=== PATIENT | male | born 1960 | race Caucasian/White ===

== ENCOUNTER 2016-09-02 23:50 | Emergency (ER) | payer MEDICAID ==
[~2016-09-02] VITALS: Ht 170.2 cm; Wt 73.0 kg
[2016-09-03 14:00] VITALS: BP 132/80
== END 2016-09-03 15:29 | disposition home or self-care (01) ==
LOC: ER 23:50
DX: R05 Cough (principal); E78.00 Pure hypercholesterolemia, unspecified; J45.909 Unspecified asthma, uncomplicated; H54.8 Legal blindness, as defined in USA; F17.200 Nicotine dependence, unspecified, uncomplicated
CPT/HCPCS: 71010; 99283

== ENCOUNTER 2016-09-09 21:38 | Emergency (ER) | payer MEDICAID ==
[~2016-09-09] VITALS: Ht 165.1 cm; Wt 59.0 kg
[2016-09-10 12:15] VITALS: BP 121/69
== END 2016-09-10 13:29 | disposition home or self-care (01) ==
LOC: ER 21:43
DX: Z00.00 Encounter for general adult medical examination without abnormal findings (principal); F17.200 Nicotine dependence, unspecified, uncomplicated
CPT/HCPCS: 99283

== ENCOUNTER 2024-11-12 10:04 | Inpatient (IN) | payer MEDICARE, MEDICAID ==
[~2024-11-12] VITALS: Ht 188 cm; Wt 83.5 kg
[2024-11-12] VITALS (8 sets, daily range): BP systolic 104–119; BP diastolic 69–95; PULSE 99–146; RESP 17–30; TEMP 36.5–36.6; O2SAT 93–95
[~2024-11-12 10:04] MED LIST: ATOR20TA PO; BENZ1TAB79 PO; BUPR-335 PO; DOCU-138 PO; OMEP20TA15 PO; RISP4TAB31 PO; TOBRAD LEFTEYE; TRAZ-252 PO
[2024-11-12] MEDS ORDERED: DILTIAZEM HCL 5MG/ML 5ML VIAL IV ONE (10:45)
[2024-11-12] MEDS: METHYLPREDNISOLONE SOD SUCC 125MG/2ML (ACT-O-VIAL) IV ONE (10:56)
[2024-11-12] MEDS: DILTIAZEM HCL 5MG/ML 5ML VIAL IV SCH (10:57)
[2024-11-12] MEDS: ALBUTEROL (0.083%) 2.5MG/3ML NEB HHN SCH (11:13)
[2024-11-12] MEDS: IPRATROPIUM BROMIDE (0.02%) 0.5MG/2.5ML NEB HHN SCH (11:13)
[2024-11-12] MEDS: AZITHROMYCIN 500MG/250ML 250 ML IV STA (11:34)
[2024-11-12] MEDS: DILTIAZEM HCL 60MG TABLET PO ONE (11:35)
[2024-11-12 11:48] LABS: HEMATOCRIT. 32.5 % (42.0-52.0); HEMOGLOBIN. 10.5 g/dL (14.0-18.0); MEAN PLATELET VOLUME 6.8 fl (7.4-10.4); PLATELET 610 x1000/uL (130-400); RED BLOOD CELL COUNT 3.99 mill/uL (4.7-6.1); RED CELL DISTRIBUTION WIDTH 16.3 % (11.6-14.6)
[2024-11-12 12:05] LABS: CREATININE 1.2 mg/dL (0.6-1.3); UREA NITROGEN BLOOD 38 mg/dL (9-23)
[2024-11-12 12:06] LABS: TROPONIN I HIGH SENSITIVITY 12 ng/L (3.0-53)
[2024-11-12 12:07] LABS: ASPARTATE AMINOTRANSFERASE 21 IU/L (<34); BILIRUBIN DIRECT 0.4 mg/dL (<=3.0)
[2024-11-12 12:08] LABS: BILIRUBIN TOTAL 0.7 mg/dL (0.1-1.0); PROTEIN TOTAL 7.0 g/dL (6.0-8.3)
[2024-11-12] MEDS ORDERED: DILTIAZEM HCL 30MG TABLET PO NR (12:15)
[2024-11-12] MEDS: CEFTRIAXONE 1GM/50ML 50 ML IV ONE (12:50)
[2024-11-12] MEDS: LACTATED RINGERS 1,000 ML IV SCH (12:51)
[2024-11-12 12:59] LABS: BAND% 7.0 % (1.0-6.0); LYMPHOCYTES % MANUAL 3.0 % (20.0-50.0); MONOCYTES % MANUAL 7.0 % (2.0-8.0); NEUTROPHILS % MANUAL 83.0 % (45.0-75.0)
[2024-11-12 13:00] LABS: PLATELET ESTIMATE INCREASED
[2024-11-12 13:31] LABS: CLARITY URINE CLOUDY (CLEAR); COLOR URINE DARK YELLOW (YELLOW); GLUCOSE URINE NEGATIVE (NEGATIVE); KETONES URINE 1+ (NEGATIVE); LEUKOCYTE ESTERASE URINE NEGATIVE (NEGATIVE); NITRITE URINE NEGATIVE (NEGATIVE); OCCULT BLOOD URINE NEGATIVE (NEGATIVE); PH URINE 5.5 (4.5-8.0); PROTEIN URINE 1+ (NEGATIVE); SPECIFIC GRAVITY URINE 1.023 (1.005-1.030); UROBILINOGEN URINE 1.0 E.U./dL (0.2-1.0)
[2024-11-12 14:09] LABS: HYALINE CASTS URINE 0-5 /lpf
[2024-11-12 14:10] LABS: BACTERIA URINE 2+; RBC URINE NONE SEEN /hpf (0-2); SQUAMOUS EPITHELIAL CELL URINE NONE SEEN /lpf (RARE/1+); YEAST URINE NONE SEEN
[2024-11-12 15:16] LABS: INR 1.2
[2024-11-12] MEDS ORDERED: ONDANSETRON HCL 4MG/2ML INJ IV PRN (16:15)
[2024-11-12] MEDS: IPRATROPIUM/ALBUTEROL 0.5-3(2.5)MG/3ML NEB HHN SCH (21:14)
[2024-11-12] MEDS: PIPERACILLIN/TAZO 3.375G/50ML 50 ML IV SCH (22:32)
[2024-11-12] MEDS: LACTULOSE 20G/30ML UDC PO SCH (22:32)
[2024-11-13] VITALS (22 sets, daily range): BP systolic 101–133; BP diastolic 68–88; PULSE 91–112; RESP 11–27; TEMP 36.6–36.9; O2SAT 76–97
[2024-11-13] MEDS: ENOXAPARIN 40MG/0.4ML SYR SUBCUT SCH (09:00)
[2024-11-13 09:32] LABS: BG BASE EXCESS 1.7 mmol/L (-2.0-3.0); BG CARBOXYHEMOGLOBIN 0.0 % (0.5-1.5); BG DEOXYHEMOGLOBIN 7.0 % (0.0-5.0); BG FLOW(L/min) 3.00 L/min; BG FRACTION INSPIRED OXYGEN 32; BG HCO3 ACT 25.2 mmol/L (21.0-28.0); BG METHEMOGLOBIN 0.3 % (0.5-1.5); BG OXYGEN SATURATION 93.0 % (94.0-98.0); BG OXYHEMOGLOBIN 92.7 % (94.0-98.0); BG PCO2 35.5 mmHg (35.0-48.0); BG PH 7.469 (7.350-7.450); BG PO2 65.9 mmHg (83.0-108.0); BG SAMPLE SITE RIGHT RADIAL; BG TOTAL HEMOGLOBIN 11.1 g/dL (13.5-17.5); BG VENT MODE NASAL CANNULA
[2024-11-13] MEDS ORDERED: CLONIDINE 0.1MG TABLET PO PRN (11:45)
[2024-11-13 18:24] LABS: PLATELET 595 x1000/uL (130-400); RED BLOOD CELL COUNT 3.61 mill/uL (4.7-6.1); RED CELL DISTRIBUTION WIDTH 16.2 % (11.6-14.6)
[2024-11-13 18:39] LABS: CREATININE 1.0 mg/dL (0.6-1.3); UREA NITROGEN BLOOD 40 mg/dL (9-23)
[2024-11-13 18:40] LABS: TRIGLYCERIDE 172 mg/dL (0-150)
[2024-11-13 18:41] LABS: ASPARTATE AMINOTRANSFERASE 72 IU/L (<34); BILIRUBIN TOTAL 0.3 mg/dL (0.1-1.0); LDL CHOLESTEROL 101 mg/dL (5-100); TROPONIN I HIGH SENSITIVITY < 4 ng/L (3.0-53)
[2024-11-13 18:42] LABS: PHOSPHORUS 3.2 mg/dL (2.5-4.9); PROTEIN TOTAL 6.4 g/dL (6.0-8.3)
[2024-11-13 18:45] LABS: T4 FREE 0.61 ng/dL (0.89-1.76)
[2024-11-13 19:41] LABS: BODY FLUID MONOCYTES 2 %
[2024-11-13 19:52] LABS: BODY FLUID RBC 93 /cu mm (0-2000); BODY FLUID WBC 12570 /cu mm (0-200)
[2024-11-13] MEDS: ATORVASTATIN CALCIUM 40MG TABLET PO SCH (20:54)
[2024-11-13] MEDS: LACTULOSE 20G/30ML UDC PO PRN (20:55)
[2024-11-13 21:51] LABS: INFLUENZA TYPE A Presumptive Negative (Pres. Neg.); INFLUENZA TYPE B Presumptive Negative (Pres. Neg.)
[2024-11-13] MEDS ORDERED: AZITHROMYCIN 500MG/250ML 250 ML IV SCH (23:30)
[2024-11-14] VITALS (16 sets, daily range): BP systolic 108–141; BP diastolic 79–94; PULSE 93–123; RESP 15–33; TEMP 36.2–37.1; O2SAT 89–98
[2024-11-14] MEDS: AZITHROMYCIN 500MG/250ML 250 ML IV SCH ×2 (01:55→20:48)
[2024-11-14] MEDS: VANCOMYCIN 1.5GM/250ML IV NR (03:47)
[2024-11-14 08:38] LABS: CREATININE 0.9 mg/dL (0.6-1.3); UREA NITROGEN BLOOD 30 mg/dL (9-23)
[2024-11-14 08:39] LABS: HEMATOCRIT. 31.0 % (42.0-52.0); HEMOGLOBIN. 10.1 g/dL (14.0-18.0); MEAN PLATELET VOLUME 6.8 fl (7.4-10.4); PLATELET 607 x1000/uL (130-400); RED BLOOD CELL COUNT 3.82 mill/uL (4.7-6.1); RED CELL DISTRIBUTION WIDTH 16.2 % (11.6-14.6)
[2024-11-14] MEDS ORDERED: RISPERIDONE 4 MG PO SCH (09:30)
[2024-11-14] MEDS: PANTOPRAZOLE 40MG DR TABLET PO SCH (10:00)
[2024-11-14] MEDS: SODIUM CHLORIDE 0.9% 1,000 ML IV SCH (11:30)
[2024-11-14] MEDS ORDERED: TRAZ-252 PO (11:55)
[2024-11-14] MEDS ORDERED: BUPR100T13 PO (11:55)
[2024-11-14] MEDS ORDERED: QUET200T30 PO (11:55)
[2024-11-14] MEDS ORDERED: FLUV50TA PO (11:55)
[2024-11-14] MEDS ORDERED: DIVA-73 PO (11:55)
[2024-11-14] MEDS: TOBRAMYCIN/DEXAMETH 0.1/0.3% OPHTH SUSP 2.5ML LEFTEYE SCH (12:50)
[2024-11-14] MEDS: VANCOMYCIN 750MG/150ML (BAXTER) IV SCH (12:59)
[2024-11-14 17:36] LABS: LACTATE DEHYDROGENASE 304 IU/L (120-246)
[2024-11-14 17:37] LABS: PROTEIN TOTAL 6.2 g/dL (6.0-8.3)
[2024-11-14 17:40] LABS: FOLIC ACID (FOLATE) SERUM 6.71 ng/mL (>5.38); VITAMIN B12 SERUM 1338 pg/mL (211-911)
[2024-11-14] MEDS ORDERED: VANCOMYCIN 750MG/150ML (BAXTER) IV SCH (18:00)
[2024-11-14 18:28] LABS: BAND% 1.0 % (1.0-6.0); LYMPHOCYTES % MANUAL 3.0 % (20.0-50.0); MONOCYTES % MANUAL 9.0 % (2.0-8.0); NEUTROPHILS % MANUAL 87.0 % (45.0-75.0); PLATELET ESTIMATE INCREASED
[2024-11-14] MEDS: QUETIAPINE FUMARATE 200MG TABLET PO SCH (20:47)
[2024-11-15] VITALS (16 sets, daily range): BP systolic 106–137; BP diastolic 71–94; PULSE 98–118; RESP 15–22; TEMP 36.4–37.2; O2SAT 91–96
[2024-11-15 13:01] LABS: HEMATOCRIT. 33.4 % (42.0-52.0); HEMOGLOBIN. 10.6 g/dL (14.0-18.0); MEAN PLATELET VOLUME 6.4 fl (7.4-10.4); PLATELET 574 x1000/uL (130-400); RED BLOOD CELL COUNT 4.11 mill/uL (4.7-6.1); RED CELL DISTRIBUTION WIDTH 16.4 % (11.6-14.6)
[2024-11-15 13:22] LABS: UREA NITROGEN BLOOD 12 mg/dL (9-23)
[2024-11-15 13:23] LABS: CREATININE 0.7 mg/dL (0.6-1.3)
[2024-11-15 13:25] LABS: LACTATE DEHYDROGENASE 150 IU/L (120-246)
[2024-11-15 14:27] LABS: BAND% 10.0 % (1.0-6.0); EOSINOPHILS % MANUAL 1.0 % (0.0-5.0); LYMPHOCYTES % MANUAL 8.0 % (20.0-50.0); METAMYELOCYTES % 3.0 % (0-0); MONOCYTES % MANUAL 6.0 % (2.0-8.0); MYELOCYTES % 1.0 % (0-0); NEUTROPHILS % MANUAL 71.0 % (45.0-75.0); PLATELET ESTIMATE INCREASED
[2024-11-16] VITALS (15 sets, daily range): BP systolic 99–151; BP diastolic 77–92; PULSE 92–124; RESP 13–20; TEMP 36.4–36.8; O2SAT 91–97
[2024-11-16 04:55] LABS: CREATININE 0.6 mg/dL (0.6-1.3); UREA NITROGEN BLOOD 8 mg/dL (9-23)
[2024-11-16 06:54] LABS: PLATELET 583 x1000/uL (130-400); RED BLOOD CELL COUNT 4.17 mill/uL (4.7-6.1); RED CELL DISTRIBUTION WIDTH 16.5 % (11.6-14.6)
[2024-11-16] MEDS: GUAIFENESIN 600MG ER TABLET PO SCH (09:45)
[2024-11-17] VITALS (14 sets, daily range): BP systolic 102–140; BP diastolic 74–89; PULSE 114–127; RESP 13–46; TEMP 36.4–37.3; O2SAT 88–95
[2024-11-17 07:04] LABS: BASOPHILS % 0.2 % (0.0-2.0); EOSINOPHILS % 2.6 % (0.0-5.0); HEMATOCRIT. 31.5 % (42.0-52.0); HEMOGLOBIN. 10.1 g/dL (14.0-18.0); LYMPHOCYTES % 9.3 % (20.0-50.0); MEAN PLATELET VOLUME 6.1 fl (7.4-10.4); MONOCYTES % 5.7 % (2.0-8.0); NEUTROPHILS % 82.2 % (40.0-76.0); PLATELET 544 x1000/uL (130-400); RED BLOOD CELL COUNT 3.88 mill/uL (4.7-6.1); RED CELL DISTRIBUTION WIDTH 16.3 % (11.6-14.6)
[2024-11-17 07:40] LABS: CREATININE 0.6 mg/dL (0.6-1.3); UREA NITROGEN BLOOD 7 mg/dL (9-23)
[2024-11-17] MEDS: FAMOTIDINE 20MG TABLET PO SCH (09:11)
[2024-11-17] MEDS: ACETAMINOPHEN 325MG TABLET PO PRN (20:18)
[2024-11-18] VITALS (12 sets, daily range): BP systolic 103–132; BP diastolic 57–89; PULSE 105–137; RESP 12–30; TEMP 36.6–38.1; O2SAT 91–99
[2024-11-18 07:48] LABS: HEMATOCRIT. 32.2 % (42.0-52.0); HEMOGLOBIN. 10.3 g/dL (14.0-18.0); MEAN PLATELET VOLUME 6.3 fl (7.4-10.4); PLATELET 556 x1000/uL (130-400); RED BLOOD CELL COUNT 3.91 mill/uL (4.7-6.1); RED CELL DISTRIBUTION WIDTH 16.4 % (11.6-14.6)
[2024-11-18 08:10] LABS: CREATININE 0.7 mg/dL (0.6-1.3)
[2024-11-18 08:11] LABS: UREA NITROGEN BLOOD 7 mg/dL (9-23)
[2024-11-18] MEDS: SODIUM CHLORIDE 0.9% 1,000 ML IV SCH (11:50)
[2024-11-18] MEDS ORDERED: AMOX1TAB16 MT (11:54)
[2024-11-18 18:18] LABS: BAND% 1.0 % (1.0-6.0); EOSINOPHILS % MANUAL 2.0 % (0.0-5.0); LYMPHOCYTES % MANUAL 5.0 % (20.0-50.0); MONOCYTES % MANUAL 6.0 % (2.0-8.0); NEUTROPHILS % MANUAL 86.0 % (45.0-75.0); PLATELET ESTIMATE INCREASED
[2024-11-19] VITALS (12 sets, daily range): BP systolic 104–142; BP diastolic 76–91; PULSE 106–129; RESP 14–31; TEMP 36.4–37.6; O2SAT 91–97
[2024-11-19 05:38] LABS: BASOPHILS % 0.2 % (0.0-2.0); EOSINOPHILS % 2.3 % (0.0-5.0); HEMATOCRIT. 31.7 % (42.0-52.0); HEMOGLOBIN. 10.1 g/dL (14.0-18.0); LYMPHOCYTES % 7.5 % (20.0-50.0); MEAN PLATELET VOLUME 6.4 fl (7.4-10.4); MONOCYTES % 6.6 % (2.0-8.0); NEUTROPHILS % 83.4 % (40.0-76.0); PLATELET 504 x1000/uL (130-400); RED BLOOD CELL COUNT 3.85 mill/uL (4.7-6.1); RED CELL DISTRIBUTION WIDTH 16.3 % (11.6-14.6)
[2024-11-19 06:21] LABS: CREATININE 0.8 mg/dL (0.6-1.3); UREA NITROGEN BLOOD 6 mg/dL (9-23)
[2024-11-19] MEDS: METOPROLOL TARTRATE 25MG TABLET PO SCH (11:44)
[2024-11-20] VITALS (13 sets, daily range): BP systolic 98–149; BP diastolic 67–94; PULSE 93–123; RESP 13–25; TEMP 36.8–37.4; O2SAT 90–97
[2024-11-20 07:43] LABS: BASOPHILS % 0.4 % (0.0-2.0); EOSINOPHILS % 1.2 % (0.0-5.0); HEMATOCRIT. 30.1 % (42.0-52.0); HEMOGLOBIN. 9.7 g/dL (14.0-18.0); LYMPHOCYTES % 7.6 % (20.0-50.0); MEAN PLATELET VOLUME 7.0 fl (7.4-10.4); MONOCYTES % 7.2 % (2.0-8.0); NEUTROPHILS % 83.6 % (40.0-76.0); PLATELET 533 x1000/uL (130-400); RED BLOOD CELL COUNT 3.69 mill/uL (4.7-6.1); RED CELL DISTRIBUTION WIDTH 16.6 % (11.6-14.6)
[2024-11-20 08:01] LABS: CREATININE 0.6 mg/dL (0.6-1.3); UREA NITROGEN BLOOD 5 mg/dL (9-23)
[2024-11-20 09:44] LABS: BG BASE EXCESS 3.4 mmol/L (-2.0-3.0); BG CARBOXYHEMOGLOBIN 0.4 % (0.5-1.5); BG DEOXYHEMOGLOBIN 9.3 % (0.0-5.0); BG FRACTION INSPIRED OXYGEN 21; BG HCO3 ACT 27.5 mmol/L (21.0-28.0); BG METHEMOGLOBIN 0.3 % (0.5-1.5); BG OXYGEN SATURATION 90.6 % (94.0-98.0); BG OXYHEMOGLOBIN 90.0 % (94.0-98.0); BG PCO2 39.9 mmHg (35.0-48.0); BG PH 7.456 (7.350-7.450); BG PO2 56.7 mmHg (83.0-108.0); BG SAMPLE SITE RIGHT RADIAL; BG TOTAL HEMOGLOBIN 11.0 g/dL (13.5-17.5); BG VENT MODE ROOM AIR
[2024-11-20] MEDS: DICLOFENAC SODIUM 75MG DR TABLET PO NR (11:52)
[2024-11-21] VITALS (12 sets, daily range): BP systolic 89–143; BP diastolic 63–88; PULSE 75–117; RESP 9–25; TEMP 35.9–37.8; O2SAT 93–100
[2024-11-21] MEDS: LIDOCAINE HCL 1% 10 MG/ML 10ML VIAL ONE (13:01)
[2024-11-21] MEDS: IOHEXOL-350 50 ML BOTTLE ONE (13:02)
[2024-11-21] MEDS: SODIUM BICARBONATE 4.2% 2.5MEQ/5ML VIAL IV ONE (13:02)
[2024-11-21] MEDS: IOHEXOL-350 100 ML BOTTLE ONE (13:02)
[2024-11-22] VITALS (12 sets, daily range): BP systolic 118–159; BP diastolic 69–93; PULSE 92–119; RESP 12–25; TEMP 36.2–37.3; O2SAT 91–98
[2024-11-23] VITALS (12 sets, daily range): BP systolic 106–135; BP diastolic 70–88; PULSE 98–119; RESP 18–40; TEMP 36.9–37.6; O2SAT 92–96
[2024-11-23] MEDS: METOPROLOL TARTRATE 50MG TABLET PO SCH (20:50)
[2024-11-24] VITALS (12 sets, daily range): BP systolic 102–127; BP diastolic 66–82; PULSE 95–111; RESP 13–23; TEMP 36.7–37.7; O2SAT 89–100
[2024-11-24 07:47] LABS: PLATELET 556 x1000/uL (130-400); RED BLOOD CELL COUNT 3.44 mill/uL (4.7-6.1); RED CELL DISTRIBUTION WIDTH 16.9 % (11.6-14.6)
[2024-11-24 08:08] LABS: CREATININE 0.8 mg/dL (0.6-1.3); UREA NITROGEN BLOOD 6 mg/dL (9-23)
[2024-11-25] VITALS (9 sets, daily range): BP systolic 115–134; BP diastolic 71–100; PULSE 100–110; RESP 14–22; TEMP 36.6–36.9; O2SAT 92–97
[2024-11-25 07:57] LABS: BASOPHILS % 0.7 % (0.0-2.0); EOSINOPHILS % 3.3 % (0.0-5.0); HEMATOCRIT. 27.8 % (42.0-52.0); HEMOGLOBIN. 9.1 g/dL (14.0-18.0); LYMPHOCYTES % 10.1 % (20.0-50.0); MEAN PLATELET VOLUME 6.6 fl (7.4-10.4); MONOCYTES % 6.8 % (2.0-8.0); NEUTROPHILS % 79.1 % (40.0-76.0); PLATELET 544 x1000/uL (130-400); RED BLOOD CELL COUNT 3.39 mill/uL (4.7-6.1); RED CELL DISTRIBUTION WIDTH 16.6 % (11.6-14.6)
[2024-11-25 08:23] LABS: CREATININE 0.7 mg/dL (0.6-1.3); UREA NITROGEN BLOOD 9 mg/dL (9-23)
== END 2024-11-25 18:25 | disposition home health service (06) | DRG 871 ==
LOC: ER 10:04 → 5EST 12:27 → EDBEDREQ 12:29 → EDBEDREQTM 12:29 → ENRESERV 12:57 → 6WST 11-13 07:38 → 5EST 11-13 08:19 → 5WST 11-24 17:03 → 5EST 11-24 17:10
PROVIDERS: ADMIT Internal Medicine; ATTEND Internal Medicine
PROC: 5A09357 Assistance with Respiratory Ventilation, Less than 24 Consecutive Hours, Continuous Positive Airway Pressure (ICD-10-PCS; 2024-11-12)
PROC: 0W9930Z Drainage of Right Pleural Cavity with Drainage Device, Percutaneous Approach (ICD-10-PCS; principal; 2024-11-13)
DX: A41.9 Sepsis, unspecified organism (principal); J18.9 Pneumonia, unspecified organism; J86.9 Pyothorax without fistula; J96.01 Acute respiratory failure with hypoxia; I31.39 Other pericardial effusion (noninflammatory); J44.0 Chronic obstructive pulmonary disease with (acute) lower respiratory infection; I71.40 Abdominal aortic aneurysm, without rupture, unspecified; I50.9 Heart failure, unspecified; R65.20 Severe sepsis without septic shock; I71.43 Infrarenal abdominal aortic aneurysm, without rupture; K59.00 Constipation, unspecified; I25.10 Atherosclerotic heart disease of native coronary artery without angina pectoris; D64.9 Anemia, unspecified; K40.20 Bilateral inguinal hernia, without obstruction or gangrene, not specified as recurrent; E78.5 Hyperlipidemia, unspecified; F20.9 Schizophrenia, unspecified; H54.8 Legal blindness, as defined in USA; Z86.73 Personal history of transient ischemic attack (TIA), and cerebral infarction without residual deficits; Z99.81 Dependence on supplemental oxygen; Z79.899 Other long term (current) drug therapy
CPT/HCPCS: 20611; 36415; 36600; 71045; 71250; 71275; 74176; 80048; 80053; 80061; 80076; 80202; 81003; 82375; 82607; 82728; 82746; 82805; 83540; 83550; 83605; 83615; 83735; 83880; 84100; 84145; 84155; 84439; 84443; 84484; 85025; 85027; 87804; 93005; 93306; 93970; 94070; 94640; 94660; 94664; 94760; 96365; 96367; 96375; 97161; 97166; 99285; A4606; C1729; J0456; J0696; J2003; J2543; J2919; J3373; J3490; J7030; Q9967